=== PATIENT | male | born 1970 | race Caucasian/White ===

== ENCOUNTER → 2024-09-16 | Emergency (ER) | payer OTHER ==
[~2024-09-16] VITALS: Ht 180.3 cm; Wt 108.9 kg
[~2024-09-16] MED LIST: ACETAMINOPHEN 500 MG TABLET ONE; HYDR-3980 PO; IBUPROFEN 200 MG TABLET ONE; OXYCODONE HCL 5 MG TABLET ONE
[2024-09-16] MEDS: IBUPROFEN 200 MG TABLET PO ONE (13:30)
[2024-09-16] MEDS: OXYCODONE HCL 5 MG TABLET PO ONE (13:38)
[2024-09-16 13:39] VITALS: TEMP 97.8
[2024-09-16] MEDS: ACETAMINOPHEN 500 MG TABLET PO ONE (13:39)
[2024-09-16 14:18] VITALS: BP 139/78; O2SAT 99
== END | disposition home or self-care (01) ==
LOC: ER 12:42
DX: Z04.1 Encounter for examination and observation following transport accident (principal); R20.0 Anesthesia of skin; M79.631 Pain in right forearm; J45.909 Unspecified asthma, uncomplicated; M10.9 Gout, unspecified; V43.52XA Car driver injured in collision with other type car in traffic accident, initial encounter; Y93.89 Activity, other specified; Y92.488 Other paved roadways as the place of occurrence of the external cause; Y99.8 Other external cause status
CPT/HCPCS: 73090; A4606; A4663; A9150